=== PATIENT | female | born 1955 | race Caucasian/White ===

== ENCOUNTER 2016-11-18 05:00 | Inpatient (IN) | payer BC ==
[2016-11-17 12:36] LABS: BASOPHILS 0.2 % (0.0-2.0); EOSINOPHILS 0.2 % (0-7); HEMATOCRIT 42.8 % (36.0-48.0); HEMOGLOBIN 14.1 g/dL (12-16); IMMATURE GRANULOCYTES 0.2 % (0-5); LYMPHOCYTES 13.5 % (15-50); MCH 30.2 pg (26.0-34.0); MCHC 32.9 g/dL (31.0-37.0); MCV 91.6 fL (80.0-100.0); MEAN PLATELET VOLUME 10.4 fL (7.4-10.4); NEUTROPHILS 76.9 % (40-80); RBC 4.67 10x6/uL (4.00-5.40); RDW 13.9 % (11.5-14.5); WBC 9.6 10x3/uL (4.8-10.8)
[2016-11-17 12:40] LABS: PLATELET COUNT 225 10x3/uL (130-400)
[2016-11-17 12:48] LABS: APTT 31.4 SECONDS (22.8-39.4); INR 1.01 (0.85-1.17); PROTIME 13.1 SECONDS (11.6-15.0)
[2016-11-17 12:51] LABS: ALBUMIN 3.6 g/dL (3.4-5.0); ALKALINE PHOSPHATASE 108 U/L (46-116); ALT (SGPT) 29 U/L (10-68); BILIRUBIN - TOTAL 0.31 mg/dL (0.2-1.3); CALC OSMOLALITY 276 mosm/kg (275-300); CARBON DIOXIDE 29.6 mmol/L (21.0-32.0); CHLORIDE - SERUM 100 mmol/L (98-107); CREATININE - SERUM 0.8 mg/dL (0.6-1.3); GLUCOSE 97 mg/dL (74-106); PROTEIN - SERUM 7.7 g/dL (6.4-8.2); SODIUM 137 mmol/L (136-145); UREA NITROGEN 22 mg/dL (7-18); eGFR NON AFRICAN AMERICAN 77 mL/min (90-120)
[2016-11-17 13:03] LABS: APPEARANCE CLEAR (CLEAR); BILIRUBIN NEGATIVE (NEGATIVE); COLOR YELLOW (YELLOW); GLUCOSE NEGATIVE (NEGATIVE); KETONE NEGATIVE (NEGATIVE); LEUKOCYTE ESTERASE NEGATIVE (NEGATIVE); NITRITE NEGATIVE (NEGATIVE); PROTEIN NEGATIVE (NEGATIVE); SPECIFIC GRAVITY 1.015 (1.005-1.020); UROBILINOGEN NORMAL (NORMAL)
[~2016-11-18] VITALS: Ht 172.7 cm; Wt 80.5 kg
[2016-11-18] VITALS (41 sets, daily range): BP systolic 90–143; BP diastolic 34–76; BMI 25.1; BMI 28.7
[~2016-11-18 05:00] MED LIST: ASPIRIN EC325 M1 PO; ASPIRIN EC81 M1 PO; ATIVAN1 MG PO; HYDROCODONE-APA1 TAB PO; METOPROLOL TART50 MG PO; MOBIC7.5 MG PO; MULTIPLE VITAMI1 TA1 PO; NORVASC10 MG PO; NORVASC5 MG PO; TOPROL XL50 MG PO; TRAZODONE HCL50 MG PO; TYLENOL W/CODEI1 TAB PO; ULTRAM50 MG PO; VALIUM 2 MG TAB2 MG PO; XANAX1 MG PO; ZESTRIL40 MG PO; ZOLOFT100 MG PO
--- NOTE | 2016-11-18 13:30 | NUR ---
PT ARRIVED BY BED FROM OR WITH OR TEAM. SWITCHED OVER TO ICU MONITORS. VSS AT THIS TIME. RIGHT RADIAL A-LINE WITH GOOD WAVE FORM. LEFT NARE NGT PLACED TO LIS. AIR OVERLAY IN PLACE AND INFLATED. BILATERAL PEDAL PULSES FOUND WITH DOPPLER.
[2016-11-18 14:07] LABS: HEMOGLOBIN 12.8 g/dL (12-16); MCH 29.9 pg (26.0-34.0); MCHC 32.8 g/dL (31.0-37.0); MCV 91.1 fL (80.0-100.0); MEAN PLATELET VOLUME 10.4 fL (7.4-10.4); RBC 4.28 10x6/uL (4.00-5.40)
[2016-11-18 14:08] LABS: WBC 17.7 10x3/uL (4.8-10.8)
[2016-11-18 14:23] LABS: ALBUMIN 2.8 g/dL (3.4-5.0); ALKALINE PHOSPHATASE 91 U/L (46-116); ALT (SGPT) 27 U/L (10-68); BILIRUBIN - TOTAL 0.39 mg/dL (0.2-1.3); CARBON DIOXIDE 24.8 mmol/L (21.0-32.0); CHLORIDE - SERUM 104 mmol/L (98-107); CREATININE - SERUM 0.6 mg/dL (0.6-1.3); GLUCOSE 144 mg/dL (74-106); POTASSIUM - SERUM 3.7 mmol/L (3.5-5.1); PROTEIN - SERUM 5.9 g/dL (6.4-8.2); SODIUM 143 mmol/L (136-145); eGFR NON AFRICAN AMERICAN > 90 mL/min (90-120)
[2016-11-18 14:25] LABS: CALC OSMOLALITY 288 mosm/kg (275-300); CALCIUM 7.4 mg/dL (8.5-10.1); UREA NITROGEN 14 mg/dL (7-18)
--- NOTE | 2016-11-18 18:22 | NUR ---
CALLED AND UPDATED DR. LE ON PT'S ABG RESULTS AND SBP IN THE 90s AND HR DROPPING DOWN INTO THE 40s. PT REPORTS THAT HER NORMAL HEART RATE IS 50-60. ORDERS TO RESTART DOPAMINE AT 3MCG/KG/MIN.
--- NOTE | 2016-11-18 19:30 | NUR ---
REPORT RECIEVED. ASSESSMENT COMPLETE PER FLOW SHEET.VSS. PT AWAKE ALERT ORIENTED X3. EYES PERRLA 3MM BRISK. O2 VIA NC 2L O2 SAT 98% RR 16 SHALLOW RUL RM L ROSANNA CLEAR BILAT LOWER LOBES DEMINISHED. NGT TO L NARE PATENT TO LIS BROWN DRAINAGE NOTED. HEART S1S2 H4R 87 NSR. BP 131/87 VIA R RADAIL ART LINE EXTREMTY PINK WITH GOOD SENSATION ZEROED WITH GOOD WAVE FORM. WRIST PROTECTOR ON. L SUBCLAVIAN PATENT DRSG CDI. ABD SOFT TENDER BS ABSENT X4 MID ABD INCISION NOTED DRSG CDI BILAT GROIN DRSG CDI. NO HEMATOMA OR BRUISING NOTED. CHAMPAGNE PATENT MANSOOR URINE NOTED. BILAT PEDAL PULSES PATENT VIA DOPPLER. NO EDEMA NOTED X4 EXTREMETIES. VSS. WILL CONTINUE TO MONITOR.
--- NOTE | 2016-11-18 21:45 | NUR ---
PT GIVEN ORAL SWABS FOR COMFORT, STATES ANXIOUS, REPOSITIONED ON R SIDE LIGHTS OUT TV OFF. WILL CONTINUE TO MONITOR.
--- NOTE | 2016-11-18 22:57 | NUR ---
REASSESSMENT COMPLETE PER FLOW SHEET. NO NEW CHANGES AT THIS TIME. PT RESTING COMFORTABLY. WILL CONTINUE TO MONITOR.
[2016-11-19] VITALS (89 sets, daily range): BP systolic 96–145; BP diastolic 37–71; Ht 172.7 cm; Wt 80.5 kg
--- NOTE | 2016-11-19 01:12 | NUR ---
ASSISTED ONTO BEDPAN NO BM NOTED. PT STATES PASSING GAS. DENIES FURTHER NEEDS. WILL CONTINUE TO MONITOR.
--- NOTE | 2016-11-19 03:28 | NUR ---
REASSESSMETN COMPLETE PER FLOW SHEET. VSS. NO NEW CHANGES AT THIS TIME. WILL CONTINUE TO MONITOR.
--- NOTE | 2016-11-19 05:00 | NUR ---
DR LE PAGEAlverto UPDATE GIVEN HR CONSISTENTLY IN 50'S, CURRENTLY HR DECREASING TO 45 EKG OBTAINED SINUS BRADYCARDIA NO NEW ASSESSMENTS OR FINDINGS NOTED ABD FLAT SOFT NO DRAINAGE NOTED AT INCISIONAL DRSG SITE. NO HEMATOMA OR BRUISING BILAT GROIN DRSG. BP 90'S TO 110'S. ORDER TO OBTAIN ABG WILL CALL BACK 0530 ABG OBTAINED, DR MIMI MARIE READ BACK RESULTS NEW ORDER RECIEVED. WILL ADM.
--- NOTE | 2016-11-19 05:15 | NUR ---
DR MIMI MARIE. UPDATE GIVEN HR CONSISTANTLY IN 50'S CURRENT HR 45, HR HAS BEEN DECREASING TO HIGH 40'S DURING REST SINCE 0330 HR INCREASED WHEN AWAKE. UNABLE TO INCREASE HR BY MOVEMENT OR STIMULATION, EKG OBTAINED SINUS ALAN DOPAMINE CURRENTLY INFUSING AT 3MCG PER ORDER TO L SUBCLAVIAN, PATENT, NO BLEEDING NOTED AT ABD INCISION SITE DRSG CDI ABD SOFT ROUND NO BRUSING NOTED NON RIGID. BILAT GROIN DRSG PATENT NO BRUISING OR HEMATOMA PRESENT BILAT PEDAL PULSES FOUND VIA DOPPLER. EKG OBTAINED READ SINUS BRADYCARDIA, LAST ABG AT 0200 READ BACK ORDER TO RECIEVE CURRENT ABG. WILL CALL BACK. 0530 DR MIMI MARIE, GIVEN RESULTS OF CURRENT ABG, T ORDER TO INCREASE DOPAMINE TO 5MCG RECIEVED. WILL ADM AND CONTINUE TO MONITOR.
[2016-11-19 06:20] LABS: HEMATOCRIT 36.6 % (36.0-48.0); HEMOGLOBIN 11.8 g/dL (12-16); MCH 29.5 pg (26.0-34.0); MCHC 32.2 g/dL (31.0-37.0); MCV 91.5 fL (80.0-100.0); MEAN PLATELET VOLUME 10.4 fL (7.4-10.4)
--- NOTE | 2016-11-19 06:40 | NUR ---
BP VIA A LINE 158/84 NITRO RESTARTED BACK AT 2. WILL CONTINUE TO MONITOR.
[2016-11-19 06:46] LABS: ALBUMIN 2.5 g/dL (3.4-5.0); ALKALINE PHOSPHATASE 83 U/L (46-116); ALT (SGPT) 26 U/L (10-68); BILIRUBIN - TOTAL 0.32 mg/dL (0.2-1.3); CALC OSMOLALITY 286 mosm/kg (275-300); CALCIUM 8.2 mg/dL (8.5-10.1); CARBON DIOXIDE 29.6 mmol/L (21.0-32.0); CHLORIDE - SERUM 106 mmol/L (98-107); CREATININE - SERUM 0.5 mg/dL (0.6-1.3); GLUCOSE 131 mg/dL (74-106); POTASSIUM - SERUM 3.8 mmol/L (3.5-5.1); SODIUM 143 mmol/L (136-145); UREA NITROGEN 12 mg/dL (7-18); eGFR NON AFRICAN AMERICAN > 90 mL/min (90-120)
--- NOTE | 2016-11-19 08:00 | NUR ---
SHIFT ASSESSMENT VIA FLOWSHEET, SEE FOR DETAILS.
--- NOTE | 2016-11-19 08:45 | NUR ---
DR LE HERE TO SEE PT.
--- NOTE | 2016-11-19 11:30 | NUR ---
REASSESSMENT VIA FLOWSHEET, SEE FOR DETAILS.
--- NOTE | 2016-11-19 13:41 | NUR ---
Question Answer Score * Is the patient Alert and Oriented? Yes 0 * How many steps to enter\exit or inside your home? 3-4 0 * PCP DR. ORDAZ 0 * Pharmacy [facility] IN [place] 0 * Preadmission Environment Home with Family 0 * ADLs Independent 0 * Equipment Walker Wheelchair 0 * List name and contact numbers for known caregivers / representatives who currently or will assist patient after discharge: SIG/OTHER: RANDY RIVERA [phone] * Community resources currently utilized None 0 * Additional services required to return to the preadmission environment? No 0 * Can the patient safely return to the preadmission environment? Yes 0 * Has this patient been hospitalized within the prior 30 days at any hospital? No PATIENT IS AWAKE AND ALERT. SHE STATES SHE LIVES AT HOME WITH HER S/O, RANDY RIVERA. SHE STATES HE HAS VASCULAR DEMENTIA AND THAT SHE PRETTY MUCH CARES FOR HIM. PATIENT STATES HER PCP IS DR. ORDAZ IN [place]. SHE GETS HER MEDS FROM [facility] IN [place]. PATIENT STATES SHE HAS A WALKER AND WHEELCHAIR. SHE DENIES EVER HAVING HOME HEALTH CARE. PATIENT STATES THAT HER S/O'S COUSIN, TAMELA RIVERA, WILL BE AVAILABLE TO DRIVE HER HOME AT DISCHARGE. 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 SHE STATES THAT SHE HAS THE [employer] [facility] [employer] ON AGING AND PLANS TO CALL THEM AFTER DISCHARGE TO SEE IF SHE CAN GET ANY HELP FOR SHE OR RANDY. SHE TELLS ME THAT WHILE SHE IS HOSPITALIZED RANDY HAS SR COMPANIONS ASSISTING HIM. PATIENT MAY NEED REHAB OR HOME HEALTH AT DISCHARGE TO ASSIST HER. CM TO FOLLOW.
--- NOTE | 2016-11-19 15:15 | NUR ---
REASSESSMENT VIA FLOWSHEET, SEE FOR DETAILS.
--- NOTE | 2016-11-19 21:14 | NUR ---
NO FAMILY AT THIS TIME. NO NEW CHANGES. VSS REPOSITIONED ON L SIDE. LIGHTS OUT DENIES FURTHER NEEDS.
--- NOTE | 2016-11-19 23:14 | NUR ---
REASSESSMENT COMPLETE PER FLOW SHEET. VSS. REPOSITONED ON R SIDE PER REQUEST NO NEW CHANGES NOTED.
[2016-11-20] VITALS (56 sets, daily range): BP systolic 95–178; BP diastolic 39–89
--- NOTE | 2016-11-20 01:17 | NUR ---
ASSISTED ONTO BEDPAN, NO BM NOTED STATES PASSING GAS.
--- NOTE | 2016-11-20 01:30 | NUR ---
PT RESTING AT THIS TIME, WILL CON'T TO MONITOR
--- NOTE | 2016-11-20 03:12 | NUR ---
REASSESSMENT COMPLETE PER FLOW SHEET. VSS. NO NEW CHNAGES AT THIS TIME.WILL CONTINUE TO MONITOR.
--- NOTE | 2016-11-20 05:20 | NUR ---
REPOSITIONED ON L SIDE FOR COMFORT. DENIES FURTHER NEEDS
[2016-11-20 07:22] LABS: HEMATOCRIT 31.9 % (36.0-48.0); MCHC 31.3 g/dL (31.0-37.0); MCV 92.5 fL (80.0-100.0); MEAN PLATELET VOLUME 10.5 fL (7.4-10.4); RBC 3.45 10x6/uL (4.00-5.40); WBC 14.3 10x3/uL (4.8-10.8)
[2016-11-20 07:36] LABS: ALBUMIN 2.1 g/dL (3.4-5.0); ALKALINE PHOSPHATASE 77 U/L (46-116); ALT (SGPT) 23 U/L (10-68); BILIRUBIN - TOTAL 0.43 mg/dL (0.2-1.3); CALCIUM 8.1 mg/dL (8.5-10.1); CARBON DIOXIDE 33.9 mmol/L (21.0-32.0); CHLORIDE - SERUM 104 mmol/L (98-107); CREATININE - SERUM 0.5 mg/dL (0.6-1.3); PROTEIN - SERUM 5.6 g/dL (6.4-8.2); SODIUM 144 mmol/L (136-145); eGFR NON AFRICAN AMERICAN > 90 mL/min (90-120)
[2016-11-20 07:39] LABS: CALC OSMOLALITY 283 mosm/kg (275-300); GLUCOSE 81 mg/dL (74-106); UREA NITROGEN 8 mg/dL (7-18)
--- NOTE | 2016-11-20 08:40 | NUR ---
Nutrition follow-up: Pt remains NPO due to hypoactive BS at this time. Labs reviewed Wt: 201# If diet unable to advance will need to begin nutrition support. Recommend starting Vital 1.0 sandy @ 25 ml/hr with gradual increase to goal rate of 70 ml/hr. RDN following.
--- NOTE | 2016-11-20 12:59 | NUR ---
NOTIFIED PT'S DAUGHTER THAT PT HAS PASSED. LISTED HOMES AND THEY CHOSE [facility].
--- NOTE | 2016-11-20 19:20 | NUR ---
SHIFT ASSESSMENT COMPLETED. SEE ASSESSMENT. LEFT NARE NG TUBE TO LIWS. GREENISH-BROWN COLORED DRAINAGE BEING REMOVED. MIDLINE UPPER BACK EPIDURAL INTACT INFUSING @ 7ML/HR WITH 4ML Q15 MIN BOLUS PRN. MIDLINE LOWER ABDOMINAL DRSG C/D/I. BILATERAL GROINS C/D/I. WEAK PULSES TO LE'S BILATERALLY, CONFIRMED VIA DOPPLER. LEFT SUBCLAVIAN WITH PLASMALYTE @ 100ML/HR; DOPAMINE @ 3MCG/KG/MIN. ON AIR OVERLAY MATTRESS. CHAMPAGNE CRITICORE TO GRAVITY DRAINING CLEAR, MANSOOR URINE. WILL MONITOR.
--- NOTE | 2016-11-20 20:15 | NUR ---
MYLANTA GIVEN VIA NG TUBE WITHOUT DIFFICULTY AND CLAMPED.
--- NOTE | 2016-11-20 20:50 | NUR ---
UNCLAMPED NG TUBE. REPOSITIONED SELF IN BED. ASSISTED WITH PILLOW PLACEMENT. WILL MONITOR.
--- NOTE | 2016-11-20 23:30 | NUR ---
REASSESSMENT COMPLETED. SEE ASSESSMENT. NO NEW ACUTE CHANGES NOTED. ABLE TO PRARA. DENIES NEEDS. B/P BETTER AT PRESENT. WILL MONITOR.
[2016-11-21] VITALS (46 sets, daily range): BP systolic 100–173; BP diastolic 40–88
--- NOTE | 2016-11-21 | NUR ---
NEW BAG OF IV FLUIDS HUNG. NO ACUTE DISTRESS NOTED. EYES CLOSED.
--- NOTE | 2016-11-21 00:20 | NUR ---
MYLANTA GIVEN VIA NG TUBE. AWOKE WHILE ADMINISTERING. DENIES NEEDS. REPORTS "MOST I'VE SLEPT SINCE IV'E BEEN HERE". DENIES PAIN. SULFONATION EQUIPMENT OPERATOR BUTTON OF EPIDURAL WITHIN REACH.
--- NOTE | 2016-11-21 01:27 | NUR ---
UNCHLAMPED NG TUBE. EYES CLOSED. NO ACUTE DISTRESS NOTED.
--- NOTE | 2016-11-21 03:15 | NUR ---
PORTABLE CHEST XRAY COMPLETED. TOLERATED WELL. REASSESSMENT COMPLETED. SEE ASSESSMENT FLOWSHEET. I.S. COMPLETED 1000-1250ML. ACHIEVED 1250ML ONCE. REPOSITIONED IN BED AFTER XRAY TO COMFORT. NEW CUP OF ICE CHIPS GIVEN DUE TO MELTING OF LAST CUP. SUPERVISOR PILE DRIVING FOR EPIDURAL WITHIN REACH. WILL MONITOR.
--- NOTE | 2016-11-21 04:30 | NUR ---
DOPAMIME BACK TO 3MCG/KG/MIN FOR HR 58 AND SBP 90'S.
--- NOTE | 2016-11-21 05:45 | NUR ---
AM LABS DRAWN FROM LEFT SC CVL WITHOUT DIFFICULTY. DENIES NEEDS. WILL MONITOR.
[2016-11-21 06:13] LABS: HEMATOCRIT 30.5 % (36.0-48.0); HEMOGLOBIN 9.5 g/dL (12-16); MCH 29.1 pg (26.0-34.0); MCHC 31.1 g/dL (31.0-37.0); MCV 93.6 fL (80.0-100.0); MEAN PLATELET VOLUME 10.4 fL (7.4-10.4); RBC 3.26 10x6/uL (4.00-5.40); RDW 13.9 % (11.5-14.5); WBC 15.2 10x3/uL (4.8-10.8)
--- NOTE | 2016-11-21 06:13 | NUR ---
AWOKE. C/O ITCHING. IV BENADRYL GIVEN PER REQUEST ONCE INFORMED SHE HAS IT ORDERED.
[2016-11-21 06:26] LABS: ALBUMIN 1.9 g/dL (3.4-5.0); ALKALINE PHOSPHATASE 78 U/L (46-116); ALT (SGPT) 21 U/L (10-68); CALC OSMOLALITY 275 mosm/kg (275-300); CALCIUM 7.8 mg/dL (8.5-10.1); CARBON DIOXIDE 32.2 mmol/L (21.0-32.0); CHLORIDE - SERUM 100 mmol/L (98-107); CREATININE - SERUM 0.4 mg/dL (0.6-1.3); GLUCOSE 88 mg/dL (74-106); PROTEIN - SERUM 5.6 g/dL (6.4-8.2); SODIUM 139 mmol/L (136-145); UREA NITROGEN 9 mg/dL (7-18); eGFR NON AFRICAN AMERICAN > 90 mL/min (90-120)
[2016-11-21 06:36] LABS: POTASSIUM - SERUM 3.1 mmol/L (3.5-5.1)
--- NOTE | 2016-11-21 07:20 | NUR ---
DR. YOUNG PAGED VIA ANSWERING SERVICE FOR POTASSIUM LEVEL. AWAITING CALL RETURN. DAY SHIFT, DOMITILA REPORT GIVEN.
--- NOTE | 2016-11-21 07:45 | NUR ---
ASSESSMENT COMPLETE. AAOX4. PAIN AT INCISION SITE, ENCOURAGED PRN EPIDURAL MEDICATION, INSTRUCTED ON USE. S1S2 NOTED, RADIAL AND PEDAL PULSES PALP, PEDAL PULSES WEAK. NSR IN 60'S ON MONITOR. DIMINISHED RLL, LLL. 2L NC. ENCOURAGED I/S AND COUGHING. HYPOACTIVE BOWEL SOUNDS X4. LEFT NARE NGT TO LIS WITH DARK GREEN OUTPUT. GENERALIZED WEAKNESS. EPIDURAL SITE INTACT, NO DRAINAGE AT SITE, DRESSING CDI, NO SWELLING NOTED. INCREASED HOB TO 45 DEGREES, PATIENT REQUESTED TO BE LAID BACK DOWN, DECREASED TO 35-40 DEGREES. MIDLINE ABDOMINAL DRESSING WITH DRIED DRAINAGE. BILAT GROIN DRESSINGS CDI, SOFT. FOR OTHER ASSESSMENT FINDINGS SEE FLOWSHEET.
--- NOTE | 2016-11-21 09:35 | NUR ---
VISITORS AT BEDSIDE. UPDATE GIVEN. HAD PATIENT PERFORM I/S. 750 REACHED CONSISTANTLY, 1000 REACHED 2/10 TIMES AND 1250 REACHED 1/10 TIMES
--- NOTE | 2016-11-21 11:30 | NUR ---
REASSESSMENT COMPLETE, SEE FLOWSHEET FOR DETAILS. PEDAL PULSES STILL WEAK, BUT PALPABLE. USING EPIDURAL APPROPRIATELY FOR PAIN. DENIES NAUSEA, SAYS SHE HAS PASSED GAS. NGT PLACEMENT CHECKED AND VERIFIED BY AUDIBLE AIR INJECTION. DENIES NEEDS. WILL CONTINUE MONITORING.
--- NOTE | 2016-11-21 13:30 | NUR ---
REMOVED NGT PER ORDER OF DR. LE. PT TOLERATED WELL. EPIDURAL REMAINS INTACT.
--- NOTE | 2016-11-21 15:15 | NUR ---
REASSESSMENT COMPLETE. MINIMAL CHANGES. NGT OUT, TOLERATING WELL. DENIES PAIN. USES PRN EPIDURAL BOLUS APPROPRIATELY. DENIES OTHER NEEDS
--- NOTE | 2016-11-21 19:30 | NUR ---
ASSESSMENT COMPLETED. SEE ASSESSMENT FLOWSHEET. O2 @ 2 LPM/NC. NSR ON THE MONITOR IN THE 70'S. DIMINISHED LUNG SOUNDS IN THE BASES. PALPABLE PERIPHERAL PULSES X4 EXTREMITIES. MIDLINE ABDOMINLA DRSG C/D/I-DRSG CHANGED AT 1100. BILATERAL GROINS DRSG C/D/I WITHOUT HEMATOMAS OR BLEEDING NOTED. LEFT SC CVL INTACT WITH PLASMALYTE INFUSING @ 100ML/HR AND DOPAMINE @ 3MCG/KG/MIN. BOTH IV FLUIDS TUBING CHANGED AT THIS TIME. SBP 120-140'S AT PRESENT. ON AIR OVERLAY MATTRESS. CHAMPAGNE CATHETER TO CRITICORE MONITORING SYSTEM-CLEAR, MANSOOR URINE NOTED. WILL MONITOR.
--- NOTE | 2016-11-21 21:20 | NUR ---
TOTAL BED BATH AND LINEN CHANGE COMPLETED. TURNED SELF SIDE TO SIDE. CHAMPAGNE CATH CARE COMPLETED. HAIR WASHED AND BRUSHED OUT WITH SOME ASSISTANCE. DENTURES CLEANSED PER SELF.
--- NOTE | 2016-11-21 22:40 | NUR ---
NO ACUTE DISTRESS NOTED. WILL MONITOR.
--- NOTE | 2016-11-21 22:55 | NUR ---
REASSESSMENT COMPLETED. SEE ASSESSMENT FLOWSHEET. NO NEW ACUTE CHANGES NOTED. WILL MONITOR.
[2016-11-22] VITALS (29 sets, daily range): BP systolic 98–158; BP diastolic 56–92
--- NOTE | 2016-11-22 00:55 | NUR ---
AWOKE HER TO TAKE PO MYLANTA WITH SMALL SIP OF WATER AFTERWARDS. REPOSITIONED SELF IN BED. DENIES ANY NEEDS AT PRESENT.
--- NOTE | 2016-11-22 02:15 | NUR ---
I & O'S ASSESSED. EYES CLOSED. NO ACUTE DISTRESS NOTED.
--- NOTE | 2016-11-22 03:10 | NUR ---
PORTABLE CHEST XRAY COMPLETED. TOLERATED WELL. REASSESSMENT COMPLETED. SEE ASSEESSMENT FLOWSHEET. EPIDURAL PIPE CLEANER BUTTON WITHIN REACH. DENIES NEEDS. DENIES NEED FOR BENADRYL.
--- NOTE | 2016-11-22 05:25 | NUR ---
AM LABS DRAWN FROM LEFT SC CVL. NEW BAG OF IV FLUIDS HUNG. NEW CUP OF ICE GIVEN. DENIES TO BE REPOSITIONED. WILL MONITOR.
[2016-11-22 05:47] LABS: HEMATOCRIT 30.2 % (36.0-48.0); HEMOGLOBIN 9.4 g/dL (12-16); MCH 28.8 pg (26.0-34.0); MCHC 31.1 g/dL (31.0-37.0); MCV 92.6 fL (80.0-100.0); MEAN PLATELET VOLUME 9.9 fL (7.4-10.4); RBC 3.26 10x6/uL (4.00-5.40); RDW 13.6 % (11.5-14.5); WBC 12.9 10x3/uL (4.8-10.8)
[2016-11-22 06:03] LABS: ALBUMIN 1.8 g/dL (3.4-5.0); ALKALINE PHOSPHATASE 76 U/L (46-116); ALT (SGPT) 20 U/L (10-68); BILIRUBIN - TOTAL 0.39 mg/dL (0.2-1.3); CARBON DIOXIDE 31.7 mmol/L (21.0-32.0); CHLORIDE - SERUM 100 mmol/L (98-107); CREATININE - SERUM 0.5 mg/dL (0.6-1.3); PROTEIN - SERUM 5.5 g/dL (6.4-8.2); SODIUM 137 mmol/L (136-145); UREA NITROGEN 8 mg/dL (7-18); eGFR NON AFRICAN AMERICAN > 90 mL/min (90-120)
[2016-11-22 06:10] LABS: CALC OSMOLALITY 269 mosm/kg (275-300); GLUCOSE 68 mg/dL (74-106); POTASSIUM - SERUM 3.6 mmol/L (3.5-5.1)
--- NOTE | 2016-11-22 07:00 | NUR ---
REC'D CARE OF PT. DENIES PAIN. PARRA. LOWER EXT WITH GOOD SENSATION. PPP.
--- NOTE | 2016-11-22 09:53 | NUR ---
RESTING WITH EYES CLOSED. VSS. RESPONSE TO VERBAL STIMULI APPROPRIATLY. MIDLINE INCISION. BILAT GROIN INCISIONS. DRSG CD&I. NO S/S OF BLEDING OR HEMATOMA. ON 2L VIA NC. SATTING 97%. RR 20 EVEN AND UNLABORED. CRITICORE CHAMPAGNE TO GRAVITY WITH ADEQUATE RETURN. CLWR. CPOC.
--- NOTE | 2016-11-22 10:23 | NUR ---
C/O ITCHING. KAYLAN MURO.
--- NOTE | 2016-11-22 12:06 | NUR ---
DR. LE AT BEDSIDE.
--- NOTE | 2016-11-22 12:38 | NUR ---
ITCHING IS BETTER
--- NOTE | 2016-11-22 13:02 | NUR ---
SPOKE WITH JENNIE KELLOGG ABOUT DC OF EPIDURAL.
--- NOTE | 2016-11-22 13:20 | NUR ---
JENNIE KELLOGG DC'Alverto EPIUDURAL.
--- NOTE | 2016-11-22 14:04 | NUR ---
SBP 130. DOPAMINE DC'D.
--- NOTE | 2016-11-22 14:37 | NUR ---
CHAMPAGNE CATH DC'D ROM BLADDER
--- NOTE | 2016-11-22 14:41 | NUR ---
AMBULATED 75 FEET AND BACK IN CHAIR.
--- NOTE | 2016-11-22 17:00 | NUR ---
REMAINS UP IN CHAIR. DENIES NEEDS. INSTRUCTED ON USE OF TORPEDO SPECIALIST. VSS.
--- NOTE | 2016-11-22 23:15 | NUR ---
1914- REPORT RECVD. CARE ASSUMED. INITIAL ASSMNT COMPLETED. SEE FLOWSHEET FOR ALL FINDINGS. UP IN CHAIR AT BEDSIDE. VSS. PERRLA. AOX4. RESP EVEN AND UNLABORED. SPO2 96% ON RA. ORTHOTIC/PROSTHETIC PRACTITIONER COUGH SEEN. LUNGS CTA. SR ON THE MONITOR. SYS B/P WITHIN PARAMETERS. PULSES PALP, WEAK. MIDLINE ABD INCISIONAL DRESSING CDI. BILATERAL GROIN DRESSINGS CDI. AFEBRILE. ABD SOFT, BSA X4. BLADDER NON PALP. MORPHINE DELIVERY HELPER IN USE FOR PAIN CONTROL. DENIES DISCOMFORT. HOB UP. C/L IN REACH. CONT CURRENT POC. 2129- NO VISITORS. IVP TORADOL GIVEN. DELIVERY HELPER MORPHINE IN USE. ASSISTED TO BSC TO VOID. LINENS CHANGED. ASSISTED INTO BED. POSITIONED SELF FOR COMFORT. VSS. HOB UP. C/L IN REACH. CONT TO MONITOR. 2314- REASSESSMENT COMPLETED. SEE FLOWSHEET FOR ALL FINDINGS. NO SIG CHANGES. RESP EVEN AND UNLABORED. SPO2 96% ON RA. RESTING IN BED. REPOSITIONING SELF. SR ON THE MONITOR. SYS B/P WITHIN PARAMETERS. PULSES PALP, WEAK. AFEBRILE. ABD SOFT, BSA X4. BLADDER NON PALP. VOIDING NO DIFF. MORPHINE DELIVERY HELPER IN USE FOR PAIN CONTROL. DENIES DISCOMFORT. HOB UP. C/L IN REACH. CONT CURRENT POC.
[2016-11-23] VITALS (14 sets, daily range): BP systolic 96–171; BP diastolic 51–103
--- NOTE | 2016-11-23 01:15 | NUR ---
RESTING IN BED WITH NO DISTRESS. VSS. SR ON THE MONITOR. SYS B/P WWITHIN PARAMETERS. COOK HOUSE LABORER MORPHINE IN USE. HOB UP. C/L AND COOK HOUSE LABORER IN REACH. CONT CURRENT POC.
--- NOTE | 2016-11-23 03:25 | NUR ---
REASSESSMENT COMPLETED. SEE FLOWSHEET FOR ALL FINDINGS. AOX4. RESP EVEN AND UNLABORED. SPO2 96% ON RA. RESTING IN BED. REPOSITIONING SELF. SR ON THE MONITOR. SYS B/P WITHIN PARAMETERS. PULSES PALP, WEAK. SCDS IN PLACE. AFEBRILE. ABD SOFT, BSA X4. BLADDER NON PALP. VOIDING NO DIFF. MORPHINE CONTRACTING SUPPORT SPECIALIST IN USE FOR PAIN CONTROL. DENIES DISCOMFORT. HOB UP. C/L IN REACH. CONT CURRENT POC.
--- NOTE | 2016-11-23 05:00 | NUR ---
ASSISTED UP TO BSC TO VOID. MINIMAL ASSIST PROVIDED. TO RADIOLOGY VIA WC. ASSISTED BACK TO BED. LINENS CHANGED. WIPES BATH PROVIDED. PO FLUIDS PROVIDED. VSS. SR ON THE MONITOR. C/L AND AIRCRAFT RESTORER IN REACH. CONT CURRENT POC.
[2016-11-23 06:08] LABS: HEMATOCRIT 28.5 % (36.0-48.0); HEMOGLOBIN 9.1 g/dL (12-16); MCH 28.9 pg (26.0-34.0); MCHC 31.9 g/dL (31.0-37.0); MEAN PLATELET VOLUME 9.5 fL (7.4-10.4); RBC 3.15 10x6/uL (4.00-5.40); RDW 13.5 % (11.5-14.5)
[2016-11-23 06:29] LABS: ALBUMIN 1.7 g/dL (3.4-5.0); ALKALINE PHOSPHATASE 71 U/L (46-116); BILIRUBIN - TOTAL 0.31 mg/dL (0.2-1.3); CARBON DIOXIDE 33.5 mmol/L (21.0-32.0); CHLORIDE - SERUM 99 mmol/L (98-107); CREATININE - SERUM 0.5 mg/dL (0.6-1.3); POTASSIUM - SERUM 3.3 mmol/L (3.5-5.1); PROTEIN - SERUM 5.3 g/dL (6.4-8.2); SODIUM 135 mmol/L (136-145); eGFR NON AFRICAN AMERICAN > 90 mL/min (90-120)
[2016-11-23 06:31] LABS: ALT (SGPT) 35 U/L (10-68); CALC OSMOLALITY 270 mosm/kg (275-300); GLUCOSE 111 mg/dL (74-106); MCV 90.5 fL (80.0-100.0); UREA NITROGEN 13 mg/dL (7-18); WBC 9.5 10x3/uL (4.8-10.8)
--- NOTE | 2016-11-23 10:04 | NUR ---
Nutrition follow-up: Diet: Regular Labs reviewed Wt: 205# Will provide food choices and honor food preferences. RDN following.
--- NOTE | 2016-11-23 14:07 | NUR ---
0800 AM ASSESMENT IS COMPLETE SEE FLOW SHEET FOR FINDINGS.. PT IS AWAKE AND WITHOUT C/O AT THIS TIME.. REPORT RECIEVED AND NIGHT NURSE IS COMPLETEING INJECTION OF REGITINE INTO RIGHT HAND WHERE THE PIV HAS INFILTRATED WITH DOPAMINE DRIP.. HAND AND ARM IS RED WITH SWELLING.. PIV HAS BEEN RESITED INTO RIGHT SHOULDER AREA AND DOPAMINE IS INFUSING INTO THE SITE ALONG WITH NS.. 0820 DR TAO IS IN TO SEE PT.. UPDATER IS GIVEN.. OK FOR PICC LINE IV 0830 MOSES SANCHEZ RN IN TO SEE PT AND INSERT PICC LINE.. 0850 PICC PLACED IN UPPER LEFT ARM AND X RAY HERE TO VERIFY PLACEMENT.. 0900 FAMILY IN TO SEE PT.. UPDATE GIEN.. 0920 GLENROY ORTEGA IN TO DO SWALLOW EVEL PER ORDER.. 0945 SWALLOW EVEL COMPLETE AND FAMILY GONE FROM BEDSIDE. 1030 COMPLETE BATH AND LINEN CHAMNGE DONE AT THIS TIME.. PT C/O PAIN IN LEFT LOWER LEG AFTER TURNING .. CAST IN PLACE AND LEG SUPPORTED ON PILLOWS.. 1100 DR KAMINSKI IN TO SEE PT.. UPDATE GIVEN AND SKIN AREAS SHOWN TO HER 1200 PUREED DIET SERVED AND FAMILY AT THE BEDSIDE ASSISTING PT WITH MEAL.. 1300 FAMILY GONE FROM THE BEDSIDE ... 1330 MEDS GIVEN.. 1400 PT IS SLEEPING AT THIS TIME..
--- NOTE | 2016-11-23 14:25 | NUR ---
0800 AM ASSESMENT IS COMPLETE SEE FLOW SHEET FOR FINDINGS.. PT IS SITTING UP IN BED.. DR LE IN TO SEE PT .. LEFT CVL IV WITH PLASMALYTE AND MORHINE VACUUM REPAIRER ... 0830 BREAKFAST SERVED AND PT IS FEEDING SELF.. 0850 PT IS AAAMBULATED IN THE UNIT WITH PHYSICAL THERAPY.. PT TOLERATED WELL.. SITTING IN THE CHAIR AT BEDSIDE.. 0900 WIHTOUT VISITORS AT THIS TIME.. 1000 CONTINUES IN THE CHAIR AT BEDISDE.
--- NOTE | 2016-11-23 14:48 | NUR ---
1200 DR LE IN TO SEE PT AND ORDERS RECIEVED FOR TRANSFER CONTINUES OOB IN THE CHAIR.. LUNCH SERVED AND FEEDING SELF.. 1300 CONTINUES IN CHAIR.. AMBULATED BY PHYSICAL THERAPY..
--- NOTE | 2016-11-23 15:04 | NUR ---
1400 MORPHINE CAMOUFLAGE ASSEMBLER DCd AT THIS TIME AND PLASMALYTE IV FLUID DCd.. SALINE LOCKED CVL... 1500 FAMILY IN TO SEE PT..
--- NOTE | 2016-11-23 16:36 | NUR ---
1625 ROOM OBTAINED ON FLOOR.. C/O PAIN MED GIVEN.. DINNER SERVED.. 1635 REPORT CALLED TO FLOOR PT FEEDING SELF AT THIS TIME..
--- NOTE | 2016-11-23 17:27 | NUR ---
RESEIVED PT TO ROOM 2116 FROM ICU IN STABLE CONDITION AA0X4 DENIES ANY NEEDS OR DISCOMFORT AT THIS TIME
--- NOTE | 2016-11-23 23:58 | NUR ---
PT ASSESSMENT COMPLETED AT THIS TIME PT LAYING IN BED EYES CLOSED AND PT APPERS TO BE SLEEPING CALL LIGHT IN REACH SRX2 BED LOW AND LOCKED NO DISTRESS OBSERVED WILL MONITOR
[2016-11-24] VITALS: BP 146/76
--- NOTE | 2016-11-24 07:56 | NUR ---
RESTING QUIETLY IN BED. DRESSINGS CLEAN AND DRY. MONITOR SHOWS 94 SR. WILL CONTINUE TO MONITOR.
[2016-11-24 08:00] VITALS: BP 152/59
--- NOTE | 2016-11-24 08:55 | NUR ---
UP ION HALLWAY WALKED 500 FEET WITH PT. @2064 LABS DRAWN FROM [facility] WITHOUT DIFFICULTY. WILL CONTINUE TO MONITOR.
[2016-11-24 09:19] LABS: HEMATOCRIT 32.6 % (36.0-48.0); HEMOGLOBIN 10.5 g/dL (12-16); MCH 29.2 pg (26.0-34.0); MCHC 32.2 g/dL (31.0-37.0); MCV 90.6 fL (80.0-100.0); RBC 3.6 10x6/uL (4.00-5.40); RDW 13.5 % (11.5-14.5)
[2016-11-24 09:21] LABS: WBC 12.3 10x3/uL (4.8-10.8)
[2016-11-24 09:30] LABS: CALCIUM 8.4 mg/dL (8.5-10.1); CARBON DIOXIDE 30.7 mmol/L (21.0-32.0); CHLORIDE - SERUM 100 mmol/L (98-107); CREATININE - SERUM 0.6 mg/dL (0.6-1.3); GLUCOSE 148 mg/dL (74-106); SODIUM 137 mmol/L (136-145); eGFR NON AFRICAN AMERICAN > 90 mL/min (90-120)
[2016-11-24 09:31] LABS: CALC OSMOLALITY 274 mosm/kg (275-300); POTASSIUM - SERUM 4.4 mmol/L (3.5-5.1); UREA NITROGEN 8 mg/dL (7-18)
[2016-11-24 12:00] VITALS: BP 173/71
[2016-11-24] MEDS ORDERED: PERCOCET 10/3251 TA1 PO (12:15)
--- NOTE | 2016-11-24 12:21 | NUR ---
DR. LE VISITEDRobyn ROSARIO TO REMOVE DRESSING AND WILL REMOVE STABLES.
[2016-11-24] MEDS ORDERED: PLAVIX75 MG PO (14:12)
--- NOTE | 2016-11-24 15:24 | NUR ---
D/C PTS L.CHEST CVL. CATHETER TIP FULLY INTACT. REMOVED TELEMETRY AND PLACED BACK IN MONITERS. PT READY TO LEAVE WITH FAMILY. NO FURTHER NEEDS OR QUESTIONS. DISCHARGE TEACHING COMPLETED AND PAPERS SIGNED.
--- NOTE | 2016-11-28 13:50 | OP ---
PATIENT NAME: BETO VELIZ MEDICAL RECORD: [id number] :57 LOCATION:D. D.[id number] ADMISSION DATE:11/18/16 SURGEON: KARINA BLACKMAN MD DATE OF OPERATION: 11/18/2016 SURGEON: Karina Blackman MD ANESTHESIA: General endotracheal, Dr. Tompkins. OPERATION PERFORMED: 1. Aortobifemoral bypass. 2. Ligation of nonfunctional in situ, right fem-pop. PREOPERATIVE DIAGNOSIS: Atherosclerosis of the lower extremities with chronic total occlusion of the superficial femoral arteries bilaterally and intermittent claudication. POSTOPERATIVE DIAGNOSIS: Atherosclerosis of the lower extremities with chronic total occlusion of the superficial femoral arteries bilaterally and intermittent claudication. INDICATION FOR OPERATION: Claudication. FINDINGS OF THE OPERATION: The aorta was severely and diffusely diseased, but was soft, just below the renal arteries. The femoral arteries were diffusely diseased bilaterally, but graftable. The graft was a Hemashield gold 14 x 7 mm. ESTIMATED BLOOD LOSS: Less than 150 mL. DESCRIPTION OF PROCEDURE: After informed consent, adequate preoperative medication evaluation, the patient was brought to the operating room, placed on the table in the supine position. After induction of general endotracheal anesthesia and application of appropriate monitoring devices, the chest, neck, abdomen, and both legs were prepped and draped in a sterile field, utilizing Betadine scrub, alcohol, and Betadine solution. A Betadine-impregnated drape was also used. An oblique incision was made above the left inguinal ligament. Dissection carried down the fascia. Hemostasis maintained with electrocautery. The superficial femoral, profunda femoral and distal left iliac arteries were dissected free of surrounding structures and surrounded with vessel loops. The common femoral was severely diseased; however, it was graftable. An incision was then made above the inguinal ligament on the right and dissection carried down the fascia. Hemostasis maintained with electrocautery. The in situ femoral popliteal bypass was dissected proximally and dissected back to the takeoff of the common femoral artery. The superficial femoral artery, profunda femoral artery and common femoral artery as well as the distal iliac were dissected free of surrounding structures. There were adhesions, but these were lysed. The retroperitoneal tunnel was developed. Vessel loops placed around the vessels. Attention was then turned toward the midline. A midline celiotomy incision was made and dissection carried down the fascia. Hemostasis maintained with electrocautery. Linea alba was identified and divided utilizing electrocautery. A Bookwalter retractor was placed in the wound and the NG tube placed in the stomach. The abdomen was examined. There was no other pathology noted other than calcified aorta. The retroperitoneum was dissected and the duodenum mobilized. The left renal vein was identified and dissected proximally and distally. The proximal aorta was then dissected from the renal arteries to OPERATIVE REPORT [id number] BETO VELIZ the level of the inferior mesenteric. This was surrounded with a vessel loop. Dissection was then carried down to the bifurcation and into each common iliac artery bilaterally creating the retroperitoneal tunnel for the aortobifemoral graft. The patient was then given a calculated dose of heparin, after 3 minutes, clamps were applied on the aorta just below the renal artery and a segment of the aorta from the inferior mesenteric to the renal arteries was resected. The aortic stump was oversewn with 3-0 Prolene and 4-0 Prolene. The proximal anastomosis was then fashioned to the 14-mm graft after trimming the graft and using a portion of the graft as a cuff. An end-to-end anastomosis was performed and tested and was competent. The limbs of the graft were then dissected into the groins bilaterally. The right limb of the graft was sutured to the old anastomosis of the in situ graft utilizing running 5-0 Prolene suture. All maneuvers to remove trapped air performed in the right leg revascularized. There was good diastolic flow through the graft and profunda, femoral artery as well as good diastolic augmentation. The wound was irrigated and hemostasis assured. Attention was then turned toward the left groin and the common femoral artery above the profunda was opened and an end-to-side anastomosis fashioned utilizing running 6-0 Prolene suture. All maneuvers to remove trapped air were performed. The clamps were removed sequentially and hemostasis was assured. The patient was given a calculated dose of protamine to reverse the heparin. Hemostasis was maintained. The wounds were irrigated with copious amounts of antibiotic solution and normal saline. Instrument counts and sponge counts were correct times 2. The groins were closed in layers utilizing 2-0 Vicryl on deep subcutaneous tissue, 3-0 Vicryl on superficial subcutaneous tissues and skin approximated with 5-0 subcuticular Monocryl. The abdomen was then examined and irrigated. There was no retroperitoneal hemorrhage. The retroperitoneum was reperitonealized excluding the duodenum from the implanted graft. The abdomen was again irrigated. Instrument count and sponge count were correct times 2. Bowel was placed back into its anatomic position and the omentum draped anteriorly. The abdomen was again irrigated. Instrument count and sponge count were correct times 2. Abdomen was closed in layers utilizing 0 Ethibond on linea alba, 2-0 Vicryl on subcutaneous tissue and skin approximated with skin [place]. Sterile dressings were applied. The patient tolerated the procedure well and was transferred to the ICU in critical, but stable condition. TRANSINT:[id number] Voice Confirmation ID: [id number] DOCUMENT ID: [id number] KARINA BLACKMAN MD at 1350 CC: [id number] DICTATION DATE: 11/18/16 1337 ACTIVITY MANAGER: 11/18/16 1847 DIS IN 11/24/16 [facility] [address] [place] [address]
== END 2016-11-24 15:28 | disposition home or self-care (01) | DRG 272 ==
LOC: D.ICU 05:00 → D.SDCHOLD 05:00 → D.ICU 07:54 → D.M2 11-23 17:21
PROVIDERS: ADMIT Internal Medicine Cardiovascular Disease
PROC: 04L Lower Arteries, Occlusion (ICD-10-PCS; 2016-11-18)
PROC: 041 Lower Arteries, Bypass (ICD-10-PCS; principal; 2016-11-18 07:30)
PROC: 04LK0ZZ Occlusion of Right Femoral Artery, Open Approach (ICD-10-PCS; 2016-11-18 07:30)
DX: I70.213 Atherosclerosis of native arteries of extremities with intermittent claudication, bilateral legs (principal); I10 Essential (primary) hypertension; G89.4 Chronic pain syndrome

== ENCOUNTER → 2017-12-09 14:44 | Outpatient (CLI) | payer BC ==
[2016-11-19 09:23] VITALS: BMI 30.6
[~2017-12-09 14:44] MED LIST changes: +PERCOCET 10/3251 TA1 PO; +PLAVIX75 MG PO
[2017-12-09 15:12] LABS: HEMATOCRIT 38.7 % (36.0-48.0); HEMOGLOBIN 12.8 g/dL (12-16); MCH 30.6 pg (26.0-34.0); MCHC 33.1 g/dL (31.0-37.0); MCV 92.6 fL (80.0-100.0); MEAN PLATELET VOLUME 10.3 fL (7.4-10.4); RBC 4.18 10x6/uL (4.00-5.40); RDW 14.7 % (11.5-14.5); WBC 7.6 10x3/uL (4.8-10.8)
[2017-12-09 15:26] LABS: ALBUMIN 3.6 g/dL (3.4-5.0); ALKALINE PHOSPHATASE 113 U/L (46-116); ALT (SGPT) 34 U/L (10-68); BILIRUBIN - TOTAL 0.15 mg/dL (0.2-1.3); CALC OSMOLALITY 281 mosm/kg (275-300); CALCIUM 8.7 mg/dL (8.5-10.1); CARBON DIOXIDE 26.7 mmol/L (21.0-32.0); CHLORIDE - SERUM 103 mmol/L (98-107); CREATININE - SERUM 0.8 mg/dL (0.6-1.3); POTASSIUM - SERUM 4.2 mmol/L (3.5-5.1); PROTEIN - SERUM 7.1 g/dL (6.4-8.2); SODIUM 139 mmol/L (136-145); UREA NITROGEN 27 mg/dL (7-18); eGFR NON AFRICAN AMERICAN 77 mL/min (90-120)
[2017-12-09 15:28] LABS: GLUCOSE 86 mg/dL (74-106)
== END | disposition home or self-care (01) ==
LOC: D.LAB 14:44
PROVIDERS: Internal Medicine Cardiovascular Disease
DX: D64.9 Anemia, unspecified (principal)

== ENCOUNTER → 2018-10-27 13:12 | Outpatient (CLI) | payer MEDICAID ==
[2016-11-19 09:23] VITALS: BMI 30.6
[2018-10-27 13:59] LABS: HEMATOCRIT 40.1 % (36.0-48.0); HEMOGLOBIN 12.8 g/dL (12-16); MCH 30.6 pg (26.0-34.0); MCHC 31.9 g/dL (31.0-37.0); MCV 95.9 fL (80.0-100.0); MEAN PLATELET VOLUME 11.3 fL (7.4-10.4); PLATELET COUNT 222 10x3/uL (130-400); RBC 4.18 10x6/uL (4.00-5.40); RDW 13.6 % (11.5-14.5); WBC 7.9 10x3/uL (4.8-10.8)
[2018-10-27 14:00] LABS: CALCIUM 9.5 mg/dL (8.5-10.1); CARBON DIOXIDE 21.9 mmol/L (21.0-32.0); CREATININE - SERUM 1.2 mg/dL (0.6-1.3); POTASSIUM - SERUM 5.9 mmol/L (3.5-5.1)
[2018-10-27 14:46] LABS: EOSINOPHILS 2 % (0-7); LYMPHOCYTES 33 % (15-50); MONOCYTES 11 % (2-11); NEUTROPHILS 54 % (40-80); PLATELET ESTIMATE NORMAL
[2018-10-27 14:47] LABS: ANISOCYTOSIS OCC; HYPOCHROMASIA OCC; ROULEAUX OCC
== END | disposition home or self-care (01) ==
LOC: D.LAB 12:57
PROVIDERS: Internal Medicine Cardiovascular Disease
DX: Z51.81 Encounter for therapeutic drug level monitoring (principal); Z79.899 Other long term (current) drug therapy

== ENCOUNTER → 2018-12-08 12:34 | Outpatient (CLI) | payer MEDICAID ==
[2016-11-19 09:23] VITALS: BMI 30.6
[2018-12-08 13:37] LABS: CALCIUM 8.6 mg/dL (8.5-10.1); CARBON DIOXIDE 24.7 mmol/L (21.0-32.0); CREATININE - SERUM 1.2 mg/dL (0.6-1.3); POTASSIUM - SERUM 4.7 mmol/L (3.5-5.1)
[2018-12-08 14:11] LABS: HEMOGLOBIN 11.4 g/dL (12-16); MCH 29.5 pg (26.0-34.0); MCHC 31.7 g/dL (31.0-37.0); MEAN PLATELET VOLUME 11.1 fL (7.4-10.4); RBC 3.87 10x6/uL (4.00-5.40); RDW 14.8 % (11.5-14.5); WBC 6.9 10x3/uL (4.8-10.8)
== END | disposition home or self-care (01) ==
LOC: D.LAB 08:45
PROVIDERS: Internal Medicine Cardiovascular Disease
DX: Z51.81 Encounter for therapeutic drug level monitoring (principal); Z79.899 Other long term (current) drug therapy

== ENCOUNTER → 2021-04-14 08:07 | Outpatient (CLI) | payer MEDICAID ==
[2016-11-19 09:23] VITALS: BMI 30.6
== END | disposition home or self-care (01) ==
LOC: D.HCCECHO 08:07
PROVIDERS: ATTEND Internal Medicine Cardiovascular Disease
DX: I25.10 Atherosclerotic heart disease of native coronary artery without angina pectoris (principal); I20.9 Angina pectoris, unspecified